=== PATIENT | male | born 1970 | race African-American/Black ===

== ENCOUNTER 2020-07-19 21:42 | Emergency (ER) | payer OTHER ==
[2020-07-19] MEDS ORDERED: ACETAMINOPHEN 325 MG TABLET PO ONE (22:34)
--- NOTE | 2020-07-19 22:36 | ER Document Report ---
ED Medical Screen (RME) - General Chief Complaint: Fever Stated Complaint: COUGH,FEVER,HEADACHE,CHILLS Time Seen by Provider: 07/19/20 22:31 Primary Care Provider: MALIK GREGORY MD [Primary Care Provider] - Follow up as needed Mode of Arrival: Ambulatory Information source: Patient Notes: HPI; 49-year-old male presents to the emergency room complaining of a chronic cough cough, states he started with a fever tonight of 102 did not take any medications for symptoms. He denies any recent travel. He denies any known COVID-19 exposure. No ill contacts. No previous COVID-19 testing. PE: Alert and oriented x3. Lungs: Clear to auscultation without rales, rhonchi, wheezes. Heart: Regular rate rhythm without murmurs, rubs, gallops. I have greeted and performed a rapid initial assessment of this patient. A comprehensive ED assessment and evaluation of the patient, analysis of test results and completion of the medical decision making process will be conducted by additional ED providers. I have specifically instructed the patient or family members with the patient to immediately return to any nursing staff should anything change in the patient's condition or with their chief complaint. TRAVEL OUTSIDE OF THE [place] IN LAST 30 DAYS: Yes - Related Data Allergies/Adverse Reactions: No Known Allergies Allergy (Verified 03/25/15 18:34) Past Medical History - Social History Chew tobacco use (# tins/day): No Frequency of alcohol use: None Drug Abuse: None Psychiatric Medical History: Denies: Hx Depression Physical Exam - Vital signs Vitals: Temp Pulse Resp BP Pulse Ox 100.8 F H 94 18 120/65 97 07/19/20 21:51 07/19/20 21:51 07/19/20 21:51 07/19/20 21:51 07/19/20 21:51 Course - Vital Signs Vital signs: Temp Pulse Resp BP Pulse Ox 100.8 F H 94 18 120/65 97 07/19/20 21:51 07/19/20 21:51 07/19/20 21:51 07/19/20 21:51 07/19/20 21:51 Doctor's Discharge - Discharge Referrals: MALIK GREGORY MD [Primary Care Provider] - Follow up as needed
--- NOTE | 2020-07-19 23:28 | RADIOLOGY REPORT (SQ) ---
EXAM DESCRIPTION: XR CHEST 1 VIEW COMPLETED DATE/TME: 07/19/2020 22:35 CLINICAL HISTORY: cough COMPARISON: None FINDINGS: Cardiac silhouette is within normal limits. There is no focal parenchymal or pleural disease. There is no acute osseous process visualized. IMPRESSION: No evidence of acute cardiopulmonary disease.
[2020-07-20 01:08] LABS: A TYPE INFLUENZA AG NEGATIVE (NEGATIVE); B INFLUENZA AG NEGATIVE (NEGATIVE)
--- NOTE | 2020-07-20 03:02 | ER Document Report ---
HPI - HPI Time Seen by Provider: 07/19/20 22:31 Pain Level: Denies Context: Patient is a 49-year-old male with a history of hypertension who presents to the emergency department with a chief complaint of a fever of 102 tonight. Patient states that there was an outbreak at the present where he works COVID-19. States that the outbreak was not in the area that he works. He did not take any medication, but received Tylenol in triage. He denies any sore throat, runny nose, abdominal pain, or any other symptoms. Although in triage it states that he has a chronic cough, he denies any cough to me. - ROS Systems Reviewed and Negative: Yes All other systems reviewed and negative - CONSTITUTIONAL Constitutional: REPORTS: Fever - EENT EENT: DENIES: Sore Throat, Ear Pain, Nasal Drainage-Clear, Nasal Drainage- Purulent, Congestion, Eye problems - NEURO Neurology: DENIES: Headache - CARDIOVASCULAR Cardiovascular: DENIES: Chest pain - RESPIRATORY Respiratory: DENIES: Trouble Breathing, Coughing - GASTROINTESTINAL Gastrointestinal: DENIES: Abdominal Pain, Nausea, Patient vomiting - DERM Skin Color: Normal Skin Problems: None Past Medical History - General Information source: Patient - Social History Smoking Status: Never Smoker Chew tobacco use (# tins/day): No Frequency of alcohol use: None Drug Abuse: None Family History: Reviewed & Not Pertinent Psychiatric Medical History: Denies: Hx Depression Vertical Provider Document - CONSTITUTIONAL Agree With Documented VS: Yes Exam Limitations: No Limitations General Appearance: No Apparent Distress - INFECTION CONTROL TRAVEL OUTSIDE OF THE [place] IN LAST 30 DAYS: Yes - HEENT HEENT: Atraumatic, Normocephalic, PERRLA. negative: Pharyngeal Exudate, Pharyngeal Tenderness, Pharyngeal Erythema, Tympanic Membrane Red, Tympanic Membrane Bulging - NECK Neck: Normal Inspection, Supple. negative: Lymphadenopathy-Left, Lymphadenopathy-Right - RESPIRATORY Respiratory: Breath Sounds Normal, No Respiratory Distress - CARDIOVASCULAR Cardiovascular: Regular Rate, Regular Rhythm Pulses: Normal: Radial - GI/ABDOMEN Gastrointestinal: Abdomen Soft, Abdomen Non-Tender - MUSCULOSKELETAL/EXTREMETIES Musculoskeletal/Extremeties: FROM - NEURO Level of Consciousness: Awake, Alert, Appropriate Motor/Sensory: No Motor Deficit, No Sensory Deficit - DERM Integumentary: Warm, Dry, No Rash Course - Re-evaluation Re-evalutation: 07/20/20 02:57 Chest x-ray is unremarkable. Flu test are negative. The patient was evaluated during the global COVID-19 pandemic and that diagnosis was suspected/considered upon their initial presentation. Their evaluation, treatment and testing was consistent with current guidelines for patients who present with complaints or symptoms that may be related to COVID-19. - Vital Signs Vital signs: Temp Pulse Resp BP Pulse Ox 100.8 F H 94 18 120/65 97 07/19/20 21:51 07/19/20 21:51 07/19/20 21:51 07/19/20 21:51 07/19/20 21:51 Discharge - Discharge Clinical Impression: Suspected COVID-19 virus infection Fever Qualifiers: Fever type: unspecified Qualified Code(s): R50.9 - Fever, unspecified Condition: Stable Disposition: HOME, SELF-CARE Instructions: COVID-19 Guidance for Persons Under Investigation Additional Instructions: You were seen today in the emergency department for fever. Take Tylenol 650 mg every 6 hours as needed for your fever. You were tested for COVID-19. Stay in quarantine until the health department calls you. If your test are positive, stay in quarantine for 2 weeks. Referrals: AILCIA PRAJAPATI NP [COMMUNITY BASED STAFF] - Follow up as needed
[2020-07-20 03:24] VITALS: BP 125/65
== END 2020-07-20 03:23 | disposition home or self-care (01) ==
LOC: ER 21:42
DX: U07.1 COVID-19 (principal); R50.9 Fever, unspecified
CPT/HCPCS: 99284; 87635; 87804; 71045; C9803